=== PATIENT | female | born 1980 | race Hispanic/Latino ===

== ENCOUNTER 2021-02-02 22:31 | Emergency (ER) | payer OTHER, SELFPAY ==
--- NOTE | ~2021-02-02 | CT_ITS ---
EXAMINATION: CT brain wo con INDICATION: Head injury COMPARISON: None TECHNIQUE: Standard unenhanced head CT. The dose-length product (DLP) was 529.67 mGy-cm. The mA was a djusted according to patient size. Iterative reconstruction technique was employed. FINDINGS: There is no intracranial hemorrhage, acute infarction, or abnormal mass lesion. The ventric les are normal. There is no abnormal mass effect or midline shift. The ramirez-white matter differentiat ion is normal. The basal cisterns are patent. The orbits are normal. The paranasal sinuses, mastoids and calvarium are normal. IMPRESSION: 1. No acute intracranial abnormality. Reviewed, dictated and finalized at location A.
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
--- NOTE | ~2021-02-02 | XR_ITS ---
XR ankle LT min 3V 02/03/2021 00:39 INDICATION: Left ankle pain PROCEDURE: 4 views left ankle COMPARISON: No prior studies for comparison. FINDINGS: Fracture, dislocation or subluxation is not identified. Ankle mortise intact. Talar dome is normal. There is loose body at the medial malleolus. Degenerative calcaneal enthesophyte. Talar dome within normal limits. The soft tissues appear within normal limits. No foreign bodies are identifie d. IMPRESSION: 1: NO ACUTE BONE OR JOINT ABNORMALITY IDENTIFIED. Reviewed, dictated and finalized at location A.
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
[2021-02-02 22:37] VITALS: BP 135/67; PULSE 116; RESP 20; TEMP 36.9; O2SAT 100
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
[2021-02-03] MEDS: CYCLOBENZAPRINE HCL 10 MG TABLET PO (00:55)
[2021-02-03] MEDS: ACETAMINOPHEN 500 MG TABLET 1000 MG PO (00:55)
== END 2021-02-03 02:37 | disposition home or self-care (01) ==
PROVIDERS: Emergency Provider Nurse Practitioner
DX: M54.2 Cervicalgia (principal); S80.02XA Contusion of left knee, initial encounter; M25.519 Pain in unspecified shoulder; M25.572 Pain in left ankle and joints of left foot; E11.9 Type 2 diabetes mellitus without complications; V49.50XA Passenger injured in collision with unspecified motor vehicles in traffic accident, initial encounter; Z79.4 Long term (current) use of insulin
CPT/HCPCS: 70450; 72125; 73562; 73610; 99284; A9270